=== PATIENT | male | born 1970 | race Caucasian/White ===

== ENCOUNTER → 2021-10-10 10:24 | Outpatient (BNVA) | payer MEDICAID, SELFPAY | PROVIDERS: Visit Provider Surgery | DX: K40.90 Unilateral inguinal hernia, without obstruction or gangrene, not specified as recurrent (principal); K42.9 Umbilical hernia without obstruction or gangrene; Z72.0 Tobacco use | CPT/HCPCS: 99202 ==

== ENCOUNTER → 2021-10-23 13:17 | Outpatient (BNVA) | payer MEDICAID, SELFPAY | PROVIDERS: Visit Provider Surgery | DX: K40.20 Bilateral inguinal hernia, without obstruction or gangrene, not specified as recurrent (principal); K42.9 Umbilical hernia without obstruction or gangrene; F41.9 Anxiety disorder, unspecified; Z72.0 Tobacco use | CPT/HCPCS: 99212 ==

== ENCOUNTER 2021-11-04 08:04 | Outpatient (REF) | payer MEDICAID, SELFPAY ==
--- NOTE | ~2021-11-04 | US_ITS ---
EXAMINATION: US ABDOMEN COMPLETE CLINICAL INFORMATION: Elevated LFTs. COMPARISON: None TECHNIQUE: Real-time imaging of the abdominal viscera. FINDINGS: PANCREAS: The head and body are normal. The tail is not well visualized due to bowel gas. ABDOMINAL AORTA: The abdominal aorta is normal in caliber. There is evidence of mild atherosclerotic disease of the distal abdominal aorta. INFERIOR VENA CAVA: Visualized portions are normal. LIVER: The liver is normal in size. The liver contour is normal. Liver echotexture is slightly increased. No focal hepatic lesion. There is no intrahepatic biliary duct dilatation seen. GALLBLADDER: Normal. The gallbladder is physiologically distended without evidence of stones, sludge, polyps, wall thickening or pericholecystic fluid. COMMON BILE DUCT: Normal in caliber measuring 0.4 cm in diameter. RIGHT KIDNEY: Normal. No hydronephrosis. No renal calculi or focal parenchymal lesions. The kidney measures 10.7 cm in maximum dimension. LEFT KIDNEY: No hydronephrosis or focal parenchymal lesions. The kidney measures 9.3 cm in maximum dimension. SPLEEN: Normal. The spleen measures 7.5 cm in maximum dimension. FREE FLUID: None. US/US abdomen complete IMPRESSION: Slightly echogenic liver probably representing fatty infiltration. Limited visualization of the tail the pancreas.
== END 2021-11-04 08:05 | disposition home or self-care (01) ==
LOC: HO.HMGCX 08:04
PROVIDERS: Visit Provider Family Medicine
DX: R79.89 Other specified abnormal findings of blood chemistry (principal)
CPT/HCPCS: 76700

== ENCOUNTER 2021-11-20 05:41 | Day surgery (SDC) | payer MEDICAID, SELFPAY ==
[2021-11-17 10:11] VITALS: BMI 25.7
[2021-11-20] VITALS (12 sets, daily range): BP systolic 119–142; BP diastolic 66–93; PULSE 81–98; RESP 16–20; TEMP 36.1–36.6; O2SAT 96–100
[2021-11-20] MEDS: Lactated Ringers 1,000 ML 100 ML IVCONT (06:32)
--- NOTE | 2021-11-20 07:14 | HO.ANESPROP2 ---
HPI - Anesthesia Eval Consult details Narrative: for ing and umbil hernia repairs PMFSH Active Problems Active Problems: All Active Problems (Updated 11/17/21 @ 10:13 by Meagan Acosta RN) Left inguinal hernia (Acute) Umbilical hernia (Acute) Nicotine use (Acute) Anxiety (Acute) Past Medical History Medical History (Updated 11/17/21 @ 10:13 by Meagan Acosta RN) Elevated cholesterol HTN (hypertension) Family History Family History Mother Skin cancer Family history of problems with anesthesia: No Surgical History Surgical History History of surgery on lower extremity History of tonsillectomy History of Problems with Anesthesia: No Social History Social History Patient Tobacco Use Status: Former Tobacco user Quit Date: 09/26/21 Are you DNR?: No Advance Directives: No Advance Directives Information Provided: Yes Recently lost weight without trying: No Nutrition Risks: No Nutritional Risk Poor oral hygiene: No Meds Allergies Allergy/AdvReac Type Severity Reaction Status Date / Time Penicillins Allergy Severe Unknown Verified 11/20/21 06:19 tetracycline Allergy Severe Unknown Verified 11/20/21 06:19 Active Medications: Current Medications Lactated Ringer's (Lr) 1,000 mls @ 100 mls/hr IVCONT .Q10H VANDANA Last Admin: 11/20/21 06:32 Dose: 100 mls/hr Home Medications Medication Instructions Recorded Confirmed Last Taken Type hydrochlorothiazide 25 mg tablet 25 mg PO DAILY 10/10/21 11/17/21 11/19/21 History metoprolol succinate 25 mg 25 mg PO BEDTIME 10/10/21 11/17/21 11/19/21 History tablet,extended release 24 hr atorvastatin 20 mg tablet 1 tab PO BEDTIME 11/17/21 11/17/21 11/19/21 History Exam Exam Date and Time: November 20, 2021 0714 Height,Weight and Vital Signs: Height 5 ft 8 in Weight 76.8 kg Last Vital Signs Temp 96.9 F 11/20/21 06:07 Pulse 98 11/20/21 06:07 Resp 16 11/20/21 06:07 BP 125/93 H 11/20/21 06:07 Pulse Ox 96 11/20/21 06:07 O2 Del Method 11/20/21 06:07 Airway Mallampati Class: I TM Dist: >3cm Neck ROM: Full Loose/Missing/Broken Teeth: Yes Heart: ok Lungs: ok Assessment and Plan Assessment Anesthesia Assessment: Anesthesia Plan Discussed and Chart Reviewed Final Anesthetic Review Family History of Problems with Anesthesia: No History of Problems with Anesthesia: No NPO: Yes ASA Class: II Final Preanesthetic Review: No Changes in Pt Med Stat, Meds/Allgs Chart Reviewed, Consent Obtained/Reviewed and Anes Risks/Benef Reviewed Patient Risk: Low Procedure Risk: Low Anesthetic Plan Anesthetic Plan: GA and Agree w/ Assess. and Plan Disposition: Standard PACU
--- NOTE | 2021-11-20 07:23 | MHC.SHP ---
Pre-Procedural Eval Section A Date of Service: 11/20/21 The patient is an INPATIENT: No The History & Physical has been completed within 30 days and I have reviewed it.: Yes Section B Chief Complaint: hernias Allergies: Allergies Allergy/AdvReac Type Severity Reaction Status Date / Time Penicillins Allergy Severe Unknown Verified 11/20/21 06:19 tetracycline Allergy Severe Unknown Verified 11/20/21 06:19 Plan I have reviewed the history and physical and performed a pertinent physical examination on my patient. No changes have occurred unless specified.
[2021-11-20] MEDS: oxyCODONE HCl Immed Release 5 MG TABLET 10 MG PO (09:23)
[2021-11-20] MEDS: fentaNYL citrate/PF 100 MCG/2 ML VIAL 50 MCG IVPUSH ×4 (09:26→10:00)
--- NOTE | 2021-11-20 09:30 | P.OP_ITS ---
Operative Note Operative Note Date of Service: 11/20/21 Narrative: Preop diagnosis: [Left inguinal hernia; umbilical hernia] Postop diagnosis: [Same, indirect inguinal hernia] Procedure: Open left inguinal hernia repair with polypropylene mesh; umbilical hernia repair Surgeon: Theron Mera MD Assist: None Anesthesia: [General via LMA; ropivacaine 0.5%] Estimated blood loss: [3cc] Specimen: [Hernia sac] Intraoperative findings: A large indirect left inguinal hernia containing properitoneal fat and the reducible, viable umbilical hernia containing properitoneal fat with approximately 1.5 cm fascial defect was encountered. Indications: The patient is a 51-year-old gentleman who moved here from [place] with right groin pain, left inguinal hernia and an umbilical hernia. No overt right inguinal hernia was encountered, and after smoking cessation and medical clearance, the patient was counseled regarding hernia repair. Activity restrictions were also reviewed. Given the symptomatic nature of these hernias, I recommended repair with mesh of the left inguinal hernia and possible primary closure of the umbilical hernia. The inherent risks were reviewed with the patient including, but not limited to: Bleeding, infection, hernia recurrence especially if postoperative instructions are in followed or weight gain occurs; mesh complications that could require reoperation, wound complications if he resumes smoking. Nerve entrapment and chronic pain were also discussed as well as urinary retention. The patient seemed understand his options and wanted to proceed. Procedure: The patient was identified in the preoperative holding area by myself and the operative site marked by me confirming a LEFT inguinal hernia & REDUCIBLE UMBILICAL HERNIA. 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 The operative field hair had been clipped in preop holding. The patient was again identified in the operating suite and placed supine on the table. See anesthesia notes for full details regarding anesthesia care and management. An appropriate time-out was performed confirming the operative site and procedure. The patient was then widely prepped and draped in the usual manner using chlorhexidine. An ileoinguinal nerve block was performed using ropivacaine and a standard left inguinal herniorrhaphy incision made sharply through the skin. Dissection was carried through all layers using electric cautery for dissection and hemostasis. Additional local was infiltrated is the external oblique aponeurosis, in the external oblique aponeurosis opened sharply in the direction of its fibers to the external ring. The ilioinguinal nerve was identified and sacrificed through the dissection given its proximity to the repair. The cord was mobilized at the level of the pubic tubercle and surrounded with hernia tape taking care to avoid structures to the test and preserve the. The floor was inspected and no direct defect found. Careful dissection of the spermatic cord to preserve the vessels and vas was performed to assess for indirect hernia sac which was moderate in size. The hernia sac was highly dissected, opened, its contents reduced and suture ligation performed. Next, a standard Gustavo tension-free herniorrhaphy performed using polypropylene patch that was sutured to the pubic tubercle and inguinal ligament using a 2-0 Polysorb. A new internal ring was made using 2-0 polypropylene suture. The new internal ring was snug enough that it could just accommodate a tip of a hemostat. Next, the operative field was inspected for hemostasis which was good, the external oblique aponeurosis was closed with a running 0 Polysorb suture, subcutaneous tissues closed with 3-0 Polysorb and skin closed with running 4-0 Monocryl subcuticular suture. The abdomen was washed and dried, Mastisol and Steri-Strips applied followed by a sterile dressing. Patient tolerated the procedure well was sent to the recovery area in stable condition. All sponge and instrument counts were correct x2.]
[2021-11-20] MEDS: Acetaminophen 325 MG TABLET 650 MG PO (09:33)
== END 2021-11-20 10:55 | disposition home or self-care (01) ==
LOC: HO.SSS 05:42
PROVIDERS: PCP Family Medicine; Visit Provider Surgery
PROC: (CPT 49505; principal; 2021-11-20 07:30)
PROC: (CPT 49505; 2021-11-20 07:30)
DX: K40.90 Unilateral inguinal hernia, without obstruction or gangrene, not specified as recurrent (principal); K42.9 Umbilical hernia without obstruction or gangrene; I10 Essential (primary) hypertension; E78.00 Pure hypercholesterolemia, unspecified; Z88.0 Allergy status to penicillin; Z88.8 Allergy status to other drugs, medicaments and biological substances; Z87.891 Personal history of nicotine dependence
CPT/HCPCS: 49505; 49585; 88302; C1781; J1885; J2250; J2405; J2795; J3010

== ENCOUNTER 2022-03-25 08:47 | Emergency (ER) | payer MEDICAID, SELFPAY ==
[2022-03-25 08:55] VITALS: BP 122/97; PULSE 109; RESP 18; TEMP 36.9; O2SAT 98; BMI 25.0
--- NOTE | 2022-03-25 08:56 | ED_ITS ---
HPI - General Adult General Chief complaint: Extremity Problem Stated complaint: foot pain, no injury Time Seen by Provider: 03/25/22 08:55 Source: patient Mode of arrival: ambulatory Limitations: no limitations History of Present Illness HPI narrative: Patient is a 51 year old assigned male at with a history of a gout presenting to the emergency department today with right foot swelling and pain. Patient states that over the last few days he has noticed his right foot to have some swelling and pain. Patient denies any dizziness, lightheadedness, abdominal pain, nausea, vomiting, fever, chills, blurry vision, double vision, loss of vision, chest pain, difficulty breathing, shortness of breath, back pain, night sweats, pain with urination, increased urinary frequency, increased urinary urgency, blood in his urine or stool, syncope or a near syncopal episode, recent trauma or falls, bowel incontinence, bladder incontinence, bowel retention, bladder retention, or any other complaints at this time. Onset (ago): day(s) Location: right and lower extremity (foot) Severity: mild Severity scale (1-10): 2 Relieving factors: none Exacerbating factors: none Associated symptoms: denies other symptoms Treatments prior to arrival: none Related Data Home Medications Medication Instructions Recorded Confirmed hydrochlorothiazide 25 mg tablet 25 mg PO DAILY 10/10/21 11/28/21 metoprolol succinate 25 mg 25 mg PO BEDTIME 10/10/21 11/28/21 tablet,extended release 24 hr atorvastatin 20 mg tablet 1 tab PO BEDTIME 11/17/21 11/28/21 Previous Rx's Medication Instructions Recorded oxycodone 5 mg tablet 5 mg PO Q4H PRN pain #20 tabs 11/20/21 naproxen 500 mg tablet 500 mg PO BID 7 days #14 tabs 03/25/22 prednisone 20 mg tablet 20 mg PO DAILY 7 days #7 tabs 03/25/22 Allergies Allergy/AdvReac Type Severity Reaction Status Date / Time Penicillins Allergy Severe Unknown Verified 11/28/21 09:27 tetracycline Allergy Severe Unknown Verified 11/28/21 09:27 Review of Systems Constitutional: Constitutional: Reports no additional constitutional complaints, Denies chills, Denies fever(s) and Denies night sweats Eyes: Eyes: Reports no additional eye complaints, Denies blurry vision, Denies change in vision, Denies diplopia, Denies eye discharge, Denies loss of vision and Denies eye pain ENT: Denies dizziness Cardiovascular: Cardiovascular: Reports no additional cardiovascular complaints, Denies chest pain, Denies lightheadedness, Denies Loss of Consciousness and Denies dyspnea Respiratory: Respiratory: Reports no additional respiratory complaints and Denies dyspnea Gastrointestinal: Gastrointestinal: Reports no additional gastrointestinal complaints, Denies abdominal pain, Denies melena, Denies hematochezia, Denies c hange in bowel habits and Denies change in stool character Genitourinary: Genitourinary: Reports no additional male genitourinary complaints, Denies hematuria, Denies oliguria, Denies difficulty urinating, Denies dysuria, Denies urinary frequency, Denies urinary hesitancy, Denies urinary incontinence and Denies urinary urgency Musculoskeletal: Musculoskeletal: Reports no additional musculoskeletal complaints, Denies numbness and Denies tingling Comments: right foot pain and swelling Neurologic: Denies dizziness, Denies loss of vision, Denies numbness and Denies tingling Psychiatric: Psychiatric: Reports no additional psychiatric complaints Endocrine: Endocrine: Reports no additional endocrine complaints Hematologic/Lymphatic: Hematologic/Lymphatic: Reports no additional hematologic/lymphatic complaints Allergic/Immunologic: Allergic/Immunologic: Reports no additional allergic/immunologic complaints PMFSH Past Medical History Attestation statement: The following information was validated with the patient. Source: old records reviewed and nursing notes reviewed Medical History Elevated cholesterol HTN (hypertension) Surgical History History of surgery on lower extremity History of tonsillectomy Family History Family History Mother Skin cancer Social History Social History Patient Tobacco Use Status: Former Tobacco user Quit Date: 09/26/21 Physical Exam ED Vital Signs: Vital Signs - 24 hr 03/25/22 08:55 Temperature 98.4 F Pulse Rate 109 H Respiratory Rate 18 Blood Pressure 122/97 H Pulse Oximetry 98 Oxygen Delivery Method Room Air BMI result Body Mass Index 25.0 Const General: cooperative, no acute distress, alert and awake Nutritional Appearance: well nourished Orientation/consciousness: patient oriented x3 Limitations: no limitations [facility] Head: Yes normal to inspection and Yes atraumatic Ears: hearing grossly normal bilaterally and external ears normal General nose exam: Normal external nose present, no nasal discharge noted and no epistaxis Face and sinus: Yes normal facial exam, No abrasion and No laceration Mouth: Normal oral and palatal mucosa present, no drooling and no muffled voice Eyes General: appearance normal, both eyes and all related structures Periorbital: periorbital findings normal Eyelids: Yes eyelids normal Conjunctivae: conjunctivae normal Pupils: Equal, round and reactive pupils present EOM: EOMs intact bilaterally Neck Neck: Yes normal visual inspection, Yes full ROM and Yes no lymphadenopathy Chest Chest palpation & inspection: normal inspection of the chest Resp Effort & Inspection: normal respiratory effort and able to speak in complete sentences Auscultation: clear to auscultation bilaterally Cardio Rate: regular rate Rhythm: regular rhythm GI Inspection: Yes normal to inspection Palpation (GI): Soft to palpation, not firm, nontender and no guarding Neuro General: patient oriented x3 and moves all extremities Cranial nerves: Yes Equal, round and reactive pupils present Cognition (Neuro): normal cognition Motor exam (neuro): 5/5 motor strength present throughout Sensory Exam: Normal double simultaneous stimulation for sensation Coordination: [id number] test normal Extrem Other: mild swelling to the dorsal aspect of the right foot with mild erythema and warmth - specifically around the dorsal 1st MTP joint General: Yes full ROM and Yes capillary refill normal Psych Appearance: grossly normal Mental Status: mental status grossly normal Affect: normal affect Attitude: cooperative Thought process: Normal thought process present Thought content: Normal thought content present Insight: Good insight present (Psych) Medical Decision Making Medical Decision Making MDM Narrative: Patient is a 51 year old assigned male at with a history of gout presenting to the emergency department today with right foot pain and swelling. Patient's physical exam showed mild erythema, warmth, and swelling to the right 1st MTP joint, consistent with gout. I explained my physical exam findings to the patient. I answered all questions asked by the patient. I stressed the importance of the patient taking his medication as prescribed. I stressed the importance of the patient following up with his primary care provider. I stressed the importance of the patient returning to the emergency department immediately if his symptoms were to worsen or if he were to develop any dizziness, shortness of breath, difficulty breathing, chest pain, blurry vision, loss of vision, nausea, vomiting, abdominal pain, fever, chills, back pain, or any other complaints. Patient verbalized agreement and understanding with this treatment plan and discharge. Differential Diagnosis Differential Diagnoses: The differential diagnosis associated with the presentation includes gout Discharge Plan Discharge Clinical Impression: Gout Patient Disposition: Home, Self-Care Instructions: Gout (ED) Additional Instructions: Follow up with your primary care provider. Return to the emergency department immediately if your symptoms worsen or if you develop any dizziness, shortness of breath, difficulty breathing, chest pain, blurry vision, loss of vision, nausea, vomiting, abdominal pain, fever, chills, back pain, or any other complaints. Prescriptions: New prednisone 20 mg tablet 20 mg PO DAILY 7 Days Qty: 7 0RF naproxen 500 mg tablet 500 mg PO BID 7 Days Qty: 14 0RF No Action atorvastatin 20 mg tablet 1 tab PO BEDTIME oxycodone 5 mg tablet 5 mg PO Q4H PRN (Reason: pain) Qty: 20 0RF Rx Instructions: Partial Fill upon patient request. hydrochlorothiazide 25 mg tablet 25 mg PO DAILY metoprolol succinate 25 mg tablet extended release 24 hr 25 mg PO BEDTIME Referrals: [facility] Family Medicine [Provider Group] (Call to establish and follow up with a primary care provider. If you already have a primary care provider, please follow up with them. ) [facility] Primary Care, [place] [Provider Group] (Call to establish and follow up with a primary care provider. If you already have a primary care provider, please follow up with them. ) [facility] Primary Care,[place] [Provider Group] (Call to establish and follow up with a primary care provider. If you already have a primary care provider, please follow up with them. ) Stand Alone Forms: Work/School Release Print Language: Luxembourgish
--- OUTSIDE RECORDS SUMMARY | 2022-03-25 09:08 | XMS_ITS | Continuity of Care Document ---
:1970 Author Organization [facility] Address [address] [place] [address]- Care Team Providers Name Role Phone Not on Staff, PCP Primary Care Physician Unavailable Encounter [facility] Date(s): 08/08/21 - 09/07/21 [facility] [address] [place] [address]- Allergies, Adverse Reactions, Alerts Substance Reaction Severity Status tetracycline Active penicillin Active
--- OUTSIDE RECORDS SUMMARY | 2022-03-25 09:09 | XMS_ITS | Continuity of Care Document ---
:1970 Author Organization [facility] Address [address] [place] [address]- Care Team Providers Name Role Phone Not on Staff, PCP Primary Care Physician Unavailable Encounter [facility] NBR [id number] Date(s): 08/12/21 - 09/11/21 [facility] [address] [place] [address]- Attending Physician: Liliana Burrows Admitting Physician: Liliana Burrows Referring Physician: Liliana Burrows Allergies, Adverse Reactions, Alerts Substance Reaction Severity Status tetracycline Active penicillin Active
--- OUTSIDE RECORDS SUMMARY | 2022-03-25 09:09 | XMS_ITS | Continuity of Care Document ---
:1970 Author Organization [facility] Address [address] [place] [address]- Care Team Providers Name Role Phone Liu Connell Primary Care Physician Encounter [facility] Date(s): 09/24/21 - 10/24/21 [facility] [address] Attending Physician: Liliana Burrows Admitting Physician: AdmtrLiliana Referring Physician: Admtr, Ar8 Allergies, Adverse Reactions, Alerts Substance Reaction Severity Status tetracycline Active penicillin Active Care Team PersonnelName: Liu Connell Address: [address] [place] [address]
--- OUTSIDE RECORDS SUMMARY | 2022-03-25 09:09 | XMS_ITS | Continuity of Care Document ---
:1970 Author Organization [facility] Address Unavailable , Care Team Providers Name Role Phone Not on Staff, PCP Primary Care Physician Unavailable Encounter [facility] Date(s): 08/07/21 - 09/06/21 [facility] Attending Physician: Liliana Burrows Admitting Physician: Liliana Burrows Referring Physician: Liliana Burrows Allergies, Adverse Reactions, Alerts Substance Reaction Severity Status tetracycline Active penicillin Active
--- OUTSIDE RECORDS SUMMARY | 2022-03-25 09:09 | XMS_ITS | Continuity of Care Document ---
:1970 Author Organization [facility] Address [address] [place] [address]- Care Team Providers Name Role Phone Not on Staff, PCP Primary Care Physician Unavailable Encounter [facility] NBR [id number] Date(s): 08/08/21 [facility] [address] [place] [address]- Attending Physician: Noah Miller Allergies, Adverse Reactions, Alerts Substance Reaction Severity Status tetracycline Active penicillin Active
--- OUTSIDE RECORDS SUMMARY | 2022-03-25 09:09 | XMS_ITS | Continuity of Care Document ---
:1970 Author Organization [facility] Address [address] [place] [address]- Care Team Providers Name Role Phone Mc MCKEON, Liu Cole Primary Care Physician Encounter [facility] Date(s): 09/08/21 - 10/08/21 [facility] [address] [place], [place] [address] Allergies, Adverse Reactions, Alerts Substance Reaction Severity Status tetracycline Active penicillin Active
--- OUTSIDE RECORDS SUMMARY | 2022-03-25 09:09 | XMS_ITS | Continuity of Care Document ---
:1970 Author Organization [facility] Address [address] [place] [address]- Care Team Providers Name Role Phone Not on Staff, PCP Primary Care Physician Unavailable Encounter [facility] Date(s): 08/07/21 - 09/06/21 [facility] [address] [place], [place] [address] Allergies, Adverse Reactions, Alerts Substance Reaction Severity Status tetracycline Active penicillin Active
--- OUTSIDE RECORDS SUMMARY | 2022-03-25 09:09 | XMS_ITS | Continuity of Care Document ---
:1970 Author Organization [facility] Address [address] [place] [address]- Care Team Providers Name Role Phone Not on Staff, PCP Primary Care Physician Unavailable Encounter [facility] Date(s): 08/08/21 - 09/07/21 [facility] [address] [place], [place] [address] Allergies, Adverse Reactions, Alerts Substance Reaction Severity Status tetracycline Active penicillin Active
--- OUTSIDE RECORDS SUMMARY | 2022-03-25 09:09 | XMS_ITS | Continuity of Care Document ---
:1970 Author Organization [facility] Address [address] [place] [address]- Care Team Providers Name Role Phone Not on Staff, PCP Primary Care Physician Unavailable Encounter [facility] Date(s): 08/05/21 - 08/05/[address] [address]- Encounter Diagnosis Abdominal pain (Final) - 08/05/21 Abdominal hernia (Final) - 08/05/21 Discharge Disposition: A-D/C Home Attending Physician: Heike Fraga MD Admitting Physician: Heike Fraga MD Referring Physician: Not on Staff, Referring MD Allergies, Adverse Reactions, Alerts Substance Reaction Severity Status tetracycline Active penicillin Active Vital Signs Most recent to oldest [Reference Range]: 1 2 Height 173 cm (08/05/21 9:51 AM) Weight 73.5 kg (08/05/21 9:51 AM) Oxygen Saturation [94-100 %] 100 % 100 % (08/05/21 9:51 AM) (08/05/21 9:42 AM) Pulse Rate [55-90 bpm] 94 bpm 101 bpm *H* *H* (08/05/21 9:51 AM) (08/05/21 9:42 AM) Body Mass Index [18.5-24.99] 24.56 (08/05/21 9:51 AM) Blood Pressure [90-138/55-84 mm Hg] 153/98 mm Hg *H* (08/05/21 9:51 AM) Respiratory Rate [16-30 br/min] 18 br/min (08/05/21 9:51 AM) Temperature [96.8-100.4 DegF] 98.1 DegF (08/05/21 9:51 AM) Mode of Delivery (Oxygen) Room air (08/05/21 9:51 AM) Blood pressure sites Arm, right (08/05/21 9:51 AM) Temperature Route Oral (08/05/21 9:51 AM) Dry Weight 73.5 kg (08/05/21 9:51 AM) Weight Obtained Via Standing scale (08/05/21 9:51 AM) Dry Weight Obtained Via Standing scale (08/05/21 9:51 AM)
[2022-03-25] MEDS: predniSONE 20 MG TABLET PO (09:19)
[2022-03-25] MEDS: NaPROXEN 500 MG TABLET PO (09:19)
== END 2022-03-25 09:26 | disposition home or self-care (01) ==
PROVIDERS: Emergency Provider Emergency Medicine
DX: M10.9 Gout, unspecified (principal); M79.671 Pain in right foot; I10 Essential (primary) hypertension; E78.5 Hyperlipidemia, unspecified; Z79.02 Long term (current) use of antithrombotics/antiplatelets; Z79.899 Other long term (current) drug therapy
CPT/HCPCS: 99283

== ENCOUNTER 2022-07-08 06:49 | Emergency (ER) | payer MEDICAID, SELFPAY ==
[2022-07-08 06:54] VITALS: BP 149/98; PULSE 133; RESP 18; TEMP 36.4; O2SAT 97; BMI 24.3
[2022-07-08 07:06] VITALS: BP 140/90; PULSE 123; RESP 20; TEMP 36.6; O2SAT 99
[2022-07-08 07:23] LABS: MANUAL DIFF FLAG NO
[2022-07-08 07:25] LABS: Basophils Percent Auto 0.2 % (0-2); Eosinophils Absolute Auto 0.1 X10*3/uL (0.0-0.4); Eosinophils Percent Auto 0.5 % (0-4); Hematocrit 40.1 % (42.0-52.0); Hemoglobin 13.7 g/dl (14.0-18.0); Imm Gran Abs Auto 0.07 X10*3/uL (0.00-0.03); Imm Gran Pct Auto 0.5 % (0.0-0.4); Lymphocytes Absolute Auto 1.8 X10*3/uL (1.2-4.9); Lymphocytes Percent Auto 13.2 % (20-40); Mean Corpuscular HGB Conc 34.2 g/dl (31.0-36.0); Mean Corpuscular Hemoglobin 32.8 pg (27.0-33.0); Mean Corpuscular Volume 95.9 fL (80.0-98.0); Mean Platelet Volume 9.6 fL (9.4-12.4); Monocytes Absolute Auto 0.8 X10*3/uL (0.1-1.2); Monocytes Percent Auto 6.2 % (2-11); Neutrophils Absolute Auto 10.6 x10*3/uL (2.0-8.3); Neutrophils Percent Auto 79.4 % (45-73); Platelet Count 226 X10*3/uL (160-400); Red Blood Count 4.18 X10*6/uL (4.60-5.80); Red Cell Distribution Width 12.8 % (11.0-16.0); White Blood Count 13.3 X10*3/uL (4.8-10.8)
--- NOTE | 2022-07-08 07:33 | ED.GENADULT ---
HPI - General Adult General Chief complaint: Extremity Injury, Lower Stated complaint: Gout Both Legs Time Seen by Provider: 07/08/22 07:32 Source: patient Mode of arrival: ambulatory Limitations: no limitations History of Present Illness HPI narrative: Patient is a 52 year old assigned male at with a history of gout and anxiety presenting to the emergency department today with right great toe pain and knee pain. Patient states that he believes that he is in an episode of gout as his right toe and knee have been hurting and his right great toe is swollen and red. Patient states that he does not tolerate pain well and gets worked up with it. Patient states that he has been having trouble sleeping from the pain. Patient denies any dizziness, lightheadedness, abdominal pain, nausea, vomiting, fever, chills, blurry vision, double vision, loss of vision, chest pain, difficulty breathing, shortness of breath, back pain, night sweats, pain with urination, increased urinary frequency, increased urinary urgency, blood in his urine or stool, syncope or a near syncopal episode, recent trauma or falls, bowel incontinence, bladder incontinence, bowel retention, bladder retention, or any other complaints at this time. Onset (ago): day(s) Location: right and lower extremity Radiation: non-radiation Severity: mild Severity scale (1-10): 3 Quality: aching Pain Consistency: constant Relieving factors: none Exacerbating factors: none Associated symptoms: denies other symptoms Treatments prior to arrival: none Related Data Home Medications Medication Instructions Recorded Confirmed hydrochlorothiazide 25 mg tablet 25 mg PO DAILY 10/10/21 11/28/21 metoprolol succinate 25 mg 25 mg PO BEDTIME 10/10/21 11/28/21 tablet,extended release 24 hr atorvastatin 20 mg tablet 1 tab PO BEDTIME 11/17/21 11/28/21 Previous Rx's Medication Instructions Recorded oxycodone 5 mg tablet 5 mg PO Q4H PRN pain #20 tabs 11/20/21 naproxen 500 mg tablet 500 mg PO BID 7 days #14 tabs 03/25/22 prednisone 20 mg tablet 20 mg PO DAILY 7 days #7 tabs 03/25/22 indomethacin 25 mg capsule 25 mg PO BID #14 caps 07/08/22 prednisone 20 mg tablet 20 mg PO DAILY 7 days #7 tabs 07/08/22 Allergies Allergy/AdvReac Type Severity Reaction Status Date / Time Penicillins Allergy Severe Unknown Verified 11/28/21 09:27 tetracycline Allergy Severe Unknown Verified 11/28/21 09:27 Review of Systems Constitutional: Constitutional: Reports no additional constitutional complaints, Denies chills, Denies fever(s) and Denies night sweats Eyes: Eyes: Reports no additional eye complaints, Denies blurry vision, Denies change in vision, Denies diplopia, Denies eye discharge, Denies loss of vision and Denies eye pain ENT: Denies dizziness Cardiovascular: Cardiovascular: Reports no additional cardiovascular complaints, Denies chest pain, Denies lightheadedness, Denies Loss of Consciousness and Denies dyspnea Respiratory: Respiratory: Reports no additional respiratory complaints and Denies dyspnea Gastrointestinal: Gastrointestinal: Reports no additional gastrointestinal complaints, Denies abdominal pain, Denies melena, Denies hematochezia, Denies change in bowel habits and Denies change in stool character Genitourinary: Genitourinary: Reports no additional male genitourinary complaints, Denies hematuria, Denies oliguria, Denies difficulty urinating, Denies dysuria, Denies urinary frequency, Denies urinary hesitancy, Denies urinary incontinence and Denies urinary urgency Musculoskeletal: Musculoskeletal: Reports no additional musculoskeletal complaints, Denies numbness and Denies tingling Comments: right great toe redness and pain, right knee pain Neurologic: Denies dizziness, Denies loss of vision, Denies numbness and Denies tingling Psychiatric: Psychiatric: Reports no additional psychiatric complaints Endocrine: Endocrine: Reports no additional endocrine complaints Hematologic/Lymphatic: Hematologic/Lymphatic: Reports no additional hematologic/lymphatic complaints Allergic/Immunologic: Allergic/Immunologic: Reports no additional allergic/immunologic complaints [facility] Past Medical History Attestation statement: The following information was validated with the patient. Source: old records reviewed and nursing notes reviewed Medical History Elevated cholesterol HTN (hypertension) Surgical History History of surgery on lower extremity History of tonsillectomy Family History Family History Mother Skin cancer Social History Social History Patient Tobacco Use Status: Former Tobacco user Quit Date: 09/26/21 Advance Directives: No Advance Directives Information Provided: Yes Physical Exam ED Vital Signs: Vital Signs - 24 hr 07/08/22 06:54 07/08/22 07:06 Temperature 97.6 F 97.9 F Pulse Rate 133 H 123 H Respiratory Rate 18 20 Blood Pressure 149/98 H 140/90 H Pulse Oximetry 97 99 Oxygen Delivery Method Room Air Room Air BMI result Body Mass Index 24.3 Const General: cooperative, no acute distress, alert and awake Nutritional Appearance: well nourished Orientation/consciousness: patient oriented x3 Limitations: no limitations HENMT Head: Yes normal to inspection and Yes atraumatic Ears: hearing grossly normal bilaterally and external ears normal General nose exam: Normal external nose present, no nasal discharge noted and no epistaxis Face and sinus: Yes normal facial exam, No abrasion and No laceration Mouth: Normal oral and palatal mucosa present, no drooling and no muffled voice Eyes General: appearance normal, both eyes and all related structures Periorbital: periorbital findings normal Eyelids: Yes eyelids normal Conjunctivae: conjunctivae normal Pupils: Equal, round and reactive pupils present EOM: EOMs intact bilaterally Neck Neck: Yes normal visual inspection, Yes full ROM and Yes no lymphadenopathy Chest Chest palpation & inspection: normal inspection of the chest Resp Effort & Inspection: normal respiratory effort and able to speak in complete sentences Auscultation: clear to auscultation bilaterally Cardio Rate: regular rate Rhythm: regular rhythm GI Inspection: Yes normal to inspection Neuro General: patient oriented x3 and moves all extremities Cranial nerves: Yes Equal, round and reactive pupils present Cognition (Neuro): normal cognition Motor exam (neuro): 5/5 motor strength present throughout Sensory Exam: Normal double simultaneous stimulation for sensation Coordination: [id number] test normal Extrem Other: minimal redness to the right great toe General: Yes full ROM and Yes capillary refill normal Psych Appearance: grossly normal Mental Status: mental status grossly normal Affect: normal affect Attitude: cooperative Thought process: Normal thought process present Thought content: Normal thought content present Insight: Good insight present (Psych) Medical Decision Making Medical Decision Making MDM Narrative: Patient is a 52 year old assigned male at with a history of anxiety and gout presenting to the emergency department today with right great toe pain and right knee pain. Patient's physical exam showed minimal redness to the right great toe and pain with palpation of the right great toe. Patient was tachycardic however, I believe this to be secondary to the patient's pain/anxiety. Patient's blood work was unremarkable. I explained my physical exam findings as well as all test results to the patient. I answered all questions asked by the patient. Patient received PO Prednisone and IM Toradol which he stated helped his symptoms significantly. I stressed the importance of the patient taking his medication as prescribed. I stressed the importance of the patient following up with his primary care provider. I stressed the importance of the patient returning to the emergency department immediately if his symptoms were to worsen or if he were to develop any dizziness, shortness of breath, difficulty breathing, chest pain, blurry vision, loss of vision, nausea, vomiting, abdominal pain, fever, chills, back pain, or any other complaints. Patient verbalized agreement and understanding with this treatment plan and discharge. Differential Diagnosis Differential Diagnoses: The differential diagnosis associated with the presentation includes gout, toe pain, knee pain Lab Data MDM Lab Attestation statement: I reviewed the patient's lab results. 07/08/22 07:15 07/08/22 07:15 Labs: Lab Results 07/08/22 07/08/22 Range/Units 07:15 07:15 WBC 13.3 H (4.8-10.8) X10*3/uL RBC 4.18 L (4.60-5.80) X10*6/uL Hgb 13.7 L (14.0-18.0) g/dl Hct 40.1 L (42.0-52.0) % MCV 95.9 (80.0-98.0) fL MCH 32.8 (27.0-33.0) pg MCHC 34.2 (31.0-36.0) g/dl RDW 12.8 (11.0-16.0) % Plt Count 226 (160-400) X10*3/uL MPV 9.6 (9.4-12.4) fL Immature Gran % (Auto) 0.5 H (0.0-0.4) % Neut % (Auto) 79.4 H (45-73) % Lymph % (Auto) 13.2 L (20-40) % [place] % (Auto) 6.2 (2-11) % Eos % (Auto) 0.5 (0-4) % Baso % (Auto) 0.2 (0-2) % Lymph # (Auto) 1.8 (1.2-4.9) X10*3/uL [place] # (Auto) 0.8 (0.1-1.2) X10*3/uL Eos # (Auto) 0.1 (0.0-0.4) X10*3/uL Baso # (Auto) 0.0 (0.0-0.2) X10*3/uL Abs Immat Gran (auto) 0.07 H (0.00-0.03) X10*3/uL Absolute Neuts (auto) 10.6 H (2.0-8.3) x10*3/uL Absolute Nucleated RBC 0.000 (0.0-0.012) X10*3/uL Nucleated RBC % (auto) 0.0 (0.0-0.2) /100WBC Sodium 140 (135-145) mmol/L Potassium 3.1 L (3.3-5.1) mmol/L Chloride 98 (96-108) mmol/L Carbon Dioxide 30 H (22-29) mmol/L Anion Gap 15 (12-20) BUN 12 (9-16) mg/dL Creatinine 1.00 (0.5-1.4) mg/dL Estim Creat Clear Calc 82.6 Estimated GFR > 60 Random Glucose 110 (60-115) mg/dL Calcium 8.4 (8.4-10.2) mg/dL Discharge Plan Discharge Clinical Impression: Gout Patient Disposition: Home, Self-Care Instructions: Low Purine Diet (ED), Gout (ED) Additional Instructions: Follow up with your primary care provider. Return to the emergency department immediately if your symptoms worsen or if you develop any dizziness, shortness of breath, difficulty breathing, chest pain, blurry vision, loss of vision, nausea, vomiting, abdominal pain, fever, chills, back pain, or any other complaints. Prescriptions: New prednisone 20 mg tablet 20 mg PO DAILY 7 Days Qty: 7 0RF indomethacin 25 mg capsule 25 mg PO BID Qty: 14 0RF Rx Instructions: administer with food or milk No Action atorvastatin 20 mg tablet 1 tab PO BEDTIME oxycodone 5 mg tablet 5 mg PO Q4H PRN (Reason: pain) Qty: 20 0RF Rx Instructions: Partial Fill upon patient request. prednisone 20 mg tablet 20 mg PO DAILY 7 Days Qty: 7 0RF naproxen 500 mg tablet 500 mg PO BID 7 Days Qty: 14 0RF hydrochlorothiazide 25 mg tablet 25 mg PO DAILY metoprolol succinate 25 mg tablet extended release 24 hr 25 mg PO BEDTIME Referrals: [facility] Family Medicine [Provider Group] (Call to establish and follow up with a primary care provider. If you already have a primary care provider, please follow up with them.) [facility] [Provider Group] (Call to establish and follow up with a primary care provider. If you already have a primary care provider, please follow up with them.) [facility] Primary [facility],[place] [Provider Group] (Call to establish and follow up with a primary care provider. If you already have a primary care provider, please follow up with them.)
[2022-07-08 07:42] LABS: Anion Gap 15 (12-20); Blood Urea Nitrogen 12 mg/dL (9-16); Calcium 8.4 mg/dL (8.4-10.2); Carbon Dioxide 30 mmol/L (22-29); Chloride 98 mmol/L (96-108); Creatinine Clr Calc Pharmacy 82.6; Estimated Glomerular Filt Rate > 60; Glucose Random 110 mg/dL (60-115); Potassium 3.1 mmol/L (3.3-5.1); Sodium 140 mmol/L (135-145)
[2022-07-08 07:57] VITALS: PULSE 106; RESP 16; O2SAT 98
[2022-07-08] MEDS: predniSONE 20 MG TABLET PO (07:58)
[2022-07-08] MEDS: Ketorolac Tromethamine 15 MG/ML VIAL IM (07:58)
== END 2022-07-08 08:05 | disposition home or self-care (01) ==
PROVIDERS: Emergency Provider Emergency Medicine Emergency Medical Services
DX: M10.9 Gout, unspecified (principal); M79.674 Pain in right toe(s); E78.5 Hyperlipidemia, unspecified; I10 Essential (primary) hypertension; Z79.02 Long term (current) use of antithrombotics/antiplatelets; Z79.899 Other long term (current) drug therapy
CPT/HCPCS: 36415; 80048; 85025; 96372; 99283; 99284; J1885

== ENCOUNTER 2022-08-26 11:37 | Outpatient (REF) | payer MEDICAID, SELFPAY ==
--- NOTE | ~2022-08-26 | XR_ITS ---
EXAMINATION: XR FOOT, LEFT CLINICAL INFORMATION: Pain with a history of gout. COMPARISON: None available. TECHNIQUE: AP, lateral, and oblique views of the left foot. FINDINGS: There is no evidence of acute fracture or dislocation of the left foot. There is narrowing with marginal sclerosis seen involving the 1st metatarsophalangeal joint with some mild erosive versus post surgical change involving the medial aspect of the head of the 1st metatarsal and with adjacent soft tissue swelling. No calcifications within the soft tissues are identified. Remainder of the joint spaces are maintained. No acute fracture is appreciated. Achilles calcaneal spur present. Vascular calcifications are seen. XR/XR foot LT min 3V IMPRESSION: Degenerative change of the left 1st metatarsophalangeal joint with associated soft tissue swelling and metatarsal head, question erosion versus post surgical change.
--- NOTE | ~2022-08-26 | XR_ITS ---
STUDY: Right tibia and fibula and left ankle, 08/26/2022. INDICATION: Chronic right ankle and right tibia and fibula pain TECHNIQUE: 2 view right tibia and fibula, 3 view right ankle FINDINGS: Intramedullary dana and anchoring screws are in place. Lucency identified about the proximal and distal aspects of the intramedullary dana without prior studies with which to compare. Well healed distal tibial and proximal fibular fractures are seen. Knee and ankle joints are intact. Mortise is normal in appearance. No acute fracture or dislocation. XR/XR tibia fibula RT 2V IMPRESSION: Well-healed right tibial and fibular fractures following ORIF. Proximal and distal lucencies about the right tibial intramedullary dana, loosening not excluded. Compare with any previous outside studies to determine if new or stable finding.
--- NOTE | ~2022-08-26 | XR_ITS ---
STUDY: Right tibia and fibula and left ankle, 08/26/2022. INDICATION: Chronic right ankle and right tibia and fibula pain TECHNIQUE: 2 view right tibia and fibula, 3 view right ankle FINDINGS: Intramedullary dana and anchoring screws are in place. Lucency identified about the proximal and distal aspects of the intramedullary dana without prior studies with which to compare. Well healed distal tibial and proximal fibular fractures are seen. Knee and ankle joints are intact. Mortise is normal in appearance. No acute fracture or dislocation. XR/XR ankle RT min 3V IMPRESSION: Well-healed right tibial and fibular fractures following ORIF. Proximal and distal lucencies about the right tibial intramedullary dana, loosening not excluded. Compare with any previous outside studies to determine if new or stable finding.
== END 2022-08-26 11:38 | disposition home or self-care (01) ==
LOC: HO.HHCX 11:37
PROVIDERS: Visit Provider Registered Nurse
DX: M25.571 Pain in right ankle and joints of right foot (principal); M79.672 Pain in left foot; M79.604 Pain in right leg; G89.29 Other chronic pain; Z87.39 Personal history of other diseases of the musculoskeletal system and connective tissue
CPT/HCPCS: 73590; 73610; 73630

== ENCOUNTER 2022-09-09 12:00 | Outpatient (REF) | payer MEDICAID, SELFPAY ==
[2022-09-11 22:04] LABS: Lyme Abs Screen <0.90 index
== END 2022-09-09 12:01 | disposition home or self-care (01) ==
LOC: HO.HHCL 12:00
PROVIDERS: Visit Provider Emergency Medicine
DX: M25.562 Pain in left knee (principal)
CPT/HCPCS: 36415; 86617; 86618

== ENCOUNTER 2022-10-01 09:04 | Outpatient (AMB) | payer MEDICAID, SELFPAY ==
--- NOTE | 2022-10-01 09:05 | A.OFFVIS_ITS ---
Intake Vital Signs 10/01/22 09:10 Height 5 ft 8 in Weight 160 lb BMI 24.3 Intake Visit Reasons: New Pt - Right Ankle Pain - Hx of Surgery in 2015 Intake Note: Lul is a 52 year old male who presents today as a new patient with complaints of Left leg pain. Patient reports that the whole leg hurts, the knee hip, ankle and feet. He has gout and has taken prednisone which is complete and is taking allopurinol. He feels this pain intermittently. He explains pressure the the base of the patella and down the front of the tibia. He also complains of right ankle painHx of Right Ankle surgery in [place] in about 2014. Allergies Penicillins Allergy (Severe, Verified 10/01/22 09:06) Unknown tetracycline Allergy (Severe, Verified 10/01/22 09:06) Unknown HPI New Pt - Right Ankle Pain - Hx of Surgery in 2015 HPI Details Lul is a 52 year old man who presents with complaints of left leg & right ankle pain. He complains of pain in his left knee, along with tightness, and he feels limited in his ROM. He says he is unable to bend his knee at times. He says this pain often radiates from his knee into his hip, or down into his ankle. He says he feels this pain in the tendons He works as a [ ] worker, and says he often works long hours on his feet or sitting on a stool, he denies any kneeling at work as this causes him pain. He has found some relief from NSAIDs and ice, along with hot showers when his knee is stiff. In regards to his right ankle he says he is sore to the touch, and often cause his foot to swell and the skin to turn red. He has a hx of right tibia IM nail, DOS: 2015 in [place]. He says he twisted and fell when walking home one evening. He has a Hx of gout and currently takes Allopurinol. He has taken Prednisone for this in the past, with relief. He says he is a smoker and occasionally drinks. 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 Review of Systems Const All systems reviewed & are unremarkable except as noted in HPI and below Physical Exam Vital Signs: BMI result Body Mass Index 24.3 Const General: no acute distress, alert and awake Orientation/consciousness: patient oriented x3 HEENT Head: Yes normocephalic and Yes atraumatic Eyes EOM: EOMs intact bilaterally Resp Effort & Inspection: normal respiratory effort and able to speak in complete sentences Cardio Jugular venous distension: no JVD Skin General skin exam: turgor normal Rashes: no rashes Neuro General: patient oriented x3 Extrem Other: Right Ankle: TTP anterior and laterally over screw head. No ankle or knee effusion. Well healed incision. Wlakin g normally. No skin changews Left Leg: Prepatellar bursitis with mild TTP. Psych Appearance: grossly normal Affect: normal affect Attitude: cooperative Results Reviewed Results Reviewed: I personally reviewed relevant radiographs. Well-healed right tibial and fibular fractures following ORIF. Proximal and distal lucencies about the right tibial intramedullary dana, loosening not excluded. Compare with any previous outside studies to determine if new or stable finding. Assessment & Plan Assessment & Plan (1) Prepatellar bursitis of left knee: Code(s): M70.42 - Prepatellar bursitis, left knee Plan: Radiating knee pain & stiffness, worse with weight-bearing activities and difficulties using stairs. I discussed treatment options, he is not interested in injections today. I recommend RICE with a knee brace, NSAIDs, PT, and he increase his daily activity levels. I counselled him on smoking cessation and discussed the safe use of NSAIDs. He can follow up prn. (2) Right ankle pain: Code(s): M25.571 - Pain in right ankle and joints of right foot Plan: This is a 52 year old man with right ankle pain, S/P right ankle IM nail with painful retained hardware. He has occasional pain and occasionally feels limited in his ADLs. He does not want to undergo LNAETTE. I recommend NSAIDs and smoking cessation (3) Painful orthopaedic hardware: Code(s): T84.84XA - Pain due to internal orthopedic prosthetic devices, implants and grafts, initial encounter (4) History of fracture of right ankle: Comment: S/P IM nail after tibia fx, [place], 2014 Code(s): Z87.81 - Personal history of (healed) traumatic fracture (5) Gout: Code(s): M10.9 - Gout, unspecified Plan Scribed for Tate Frost MD by Jani Stone, medical insurance claims specialist, on 10/01/22 at 9:40 AM, EST. Coding Level of Care Code New Pt Level 4 (76922) Diagnoses Prepatellar bursitis of left knee M70.42 Right ankle pain M25.571 Painful orthopaedic hardware T84.84XA History of fracture of right ankle Z87.81 Gout M10.9
[2022-10-01 09:10] VITALS: BMI 24.3
== END 2022-10-01 09:35 | disposition home or self-care (01) ==
PROVIDERS: Visit Provider Orthopaedic Surgery
DX: M70.42 Prepatellar bursitis, left knee (principal); M25.571 Pain in right ankle and joints of right foot; T84.84XA Pain due to internal orthopedic prosthetic devices, implants and grafts, initial encounter; M10.9 Gout, unspecified
CPT/HCPCS: 99204

== ENCOUNTER → 2022-10-01 09:04 | Outpatient (BNVA) | payer MEDICAID, SELFPAY | PROVIDERS: Visit Provider Orthopaedic Surgery | DX: M70.42 Prepatellar bursitis, left knee (principal); T84.84XA Pain due to internal orthopedic prosthetic devices, implants and grafts, initial encounter; M25.571 Pain in right ankle and joints of right foot; M10.9 Gout, unspecified; Z87.81 Personal history of (healed) traumatic fracture | CPT/HCPCS: 99202 ==

== ENCOUNTER 2022-12-15 11:08 | Outpatient (AMB) | payer SELFPAY ==
[2022-12-15 11:10] VITALS: BP 140/82; PULSE 111; TEMP 36.7; O2SAT 96; BMI 28.1
--- NOTE | 2022-12-15 11:10 | A.OFFVIS_ITS ---
Intake Vital Signs 12/15/22 11:10 Height 5 ft 8 in Weight 184 lb 15.485 oz BMI 28.1 BP 140/82 H Blood Pressure Location Rt brachial Position Sitting Pulse 111 H Pulse Source Pulse Oximeter Temp 98.1 F Temp Source Skin Pulse Oximetry (%) 96 Intake Visit Reasons: Gout Intake Note: New pt presents today for consult at the request of PCP, to discuss recurrent gout flares. C/o severe joint pain. Treated in the past with prednisone, he is currently on allopurinol 200mg. Hx of ankle pain s/p fracture 2014, had surgery in [place], hardware in place, follows with Ortho Dr Frost. 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 by: Self / Same As Patient Allergies Penicillins Allergy (Severe, Verified 12/15/22 11:13) Rash tetracycline Allergy (Severe, Verified 12/15/22 11:13) Unknown Medication List - Last Reconciled 12/15/22 by Mariah Perera MD allopurinol 200 mg PO DAILY atorvastatin 1 tab PO BEDTIME cholecalciferol (vitamin D3) 50 mcg PO DAILY epinephrine IM hydrochlorothiazide 25 mg PO DAILY metoprolol succinate ER 25 mg PO BEDTIME nicotine (polacrilex) 2 mg PO Q8H omega 7-gcr-ibz-fish oil 1,000 mg (120 mg-180 mg) caps PO omega-3 fatty acids mg PO HPI HPI Comments History of Present Illness Details This is a 52-year-old male who presents for gout evaluation. Patient states that he 1st started having gout around 2012. He would have 1-2 attacks per year. Usually affecting his feet, ankles, toes or knees. States that he would usually take prednisone taper which would take care of the attack very quickly. Sometimes takes ibuprofen. Over the last year however he he had about 10 attacks. He was started on allopurinol 100 mg daily 6 months ago and increase to 200 mg daily 2 weeks ago. Patient drinks about a 12 pack of beer in a week. In 1998 patient had a large left kidney stone, he had a cystoscopy and stent placed, afterwards he had a few episodes of kidney stones that passed on their own. He does not know the type of kidney stone. States that his most recent kidney stone was at least 15 years ago. States that he used to cycle frequently and would get dehydrated. This does not happen anymore. He is unaware of any family history of gout. She also mentions history of Raynaud's. States that his fingers change color in to white in the cold. Patient has a history of right ankle fracture and has hardware placed years ago. States that the hardware causes chronic pain. [facility] Medical History (Updated 12/15/22 @ 11:45 by Mariah Perera MD) Nephrolithiasis Raynaud phenomenon Right ankle pain History of fracture of right ankle Gout Elevated cholesterol HTN (hypertension) Surgical History (Updated 12/15/22 @ 11:43 by Mariah Perera MD) S/P cystoscopy with ureteral stent placement Hx of cataract extraction Hx of hernia repair History of surgery on lower extremity History of tonsillectomy Family History Mother Skin cancer Other Family history of diabetes mellitus Social History Alcohol intake: current Alcohol intake frequency: a few times a week Patient Tobacco Use Status: Current everyday Tobacco user Cigarette Packs Per Day: 0.5 Current occupational status: employed 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 Review of Systems [facility] [place] Reports arthralgias and Reports joint swelling Physical Exam Vital Signs: Last Vital Signs Temp 98.1 F 12/15/22 11:10 Pulse 111 H 12/15/22 11:10 BP 140/82 H 12/15/22 11:10 Pulse Ox 96 12/15/22 11:10 BMI result Body Mass Index 28.1 Const General: cooperative, healthy appearing and comfortable Nutritional Appearance: overweight Orientation/consciousness: patient oriented x3 Limitations: no limitations HEENT Head: Yes normocephalic and Yes atraumatic Resp Effort & Inspection: normal respiratory effort and able to speak in complete sentences Neuro General: patient oriented x3 Extrem Other: Mild osteoarthritic changes of both hands with no active synovitis No tophi noted Results Reviewed Results Reviewed: Labs 07/24/2022 Uric acid 7.8 mg/dL CMP unremarkable except for AST 37 (<35) Assessment & Plan Assessment & Plan (1) Gout: Code(s): M10.9 - Gout, unspecified Qualifiers: Gout site: multiple sites Gout etiology: idiopathic Chronicity: chronic Presence of tophus: without tophus Qualified Code(s): M1A.09X0 - Idiopathic chronic gout, multiple sites, without tophus (tophi) Plan: This is a 52-year-old male who presents for evaluation of gout. Started having gout episodes in 2012. He would have 1-2 attacks per year. Over the last year he had around 10 acute gout attacks. Started on allopurinol 100 mg daily by his PCP and uptitrated to 200 mg daily 2 weeks ago. Patient likely needs some prophylaxis. Check labs today. Continue allopurinol 200 mg daily Follow-up in 2 weeks Plan I spent 26 minutes reviewing patient's chart, evaluating patient, ordering diagnostic workup, counseling patient and documenting in the chart Orders: Orders Complete Blood Count Auto Diff Today M10.9 - Gout, unspecified Comprehensive Met. Panel Today M10.9 - Gout, unspecified Uric Acid Today M10.9 - Gout, unspecified Coding Level of Care Code New Pt Level 3 (63908) Diagnoses Idiopathic chronic gout of multiple sites without tophus M1A.09X0 Gout site: multiple sites Gout etiology: idiopathic Chronicity: chronic Presence of tophus: without tophus
== END 2022-12-15 11:38 | disposition home or self-care (01) ==
PROVIDERS: PCP Registered Nurse; Referring Provider Registered Nurse; Visit Provider Student in an Organized Health Care Education/Training Program
DX: M1A.09X0 Idiopathic chronic gout, multiple sites, without tophus (tophi) (principal)
CPT/HCPCS: 99203

== ENCOUNTER → 2022-12-15 11:08 | Outpatient (BNVA) | payer MEDICAID, SELFPAY | PROVIDERS: Visit Provider Student in an Organized Health Care Education/Training Program ==

== ENCOUNTER 2022-12-15 11:43 | Outpatient (REF) | payer OTHER, SELFPAY ==
[2022-12-15 13:28] LABS: MANUAL DIFF FLAG NO
[2022-12-15 13:50] LABS: Basophils Absolute Auto 0.1 X10*3/uL (0.0-0.2); Basophils Percent Auto 0.8 % (0-2); Eosinophils Absolute Auto 0.2 X10*3/uL (0.0-0.4); Eosinophils Percent Auto 1.9 % (0-4); Hematocrit 38.4 % (42.0-52.0); Hemoglobin 13.2 g/dl (14.0-18.0); Imm Gran Abs Auto 0.03 X10*3/uL (0.00-0.03); Imm Gran Pct Auto 0.3 % (0.0-0.4); Lymphocytes Absolute Auto 2.4 X10*3/uL (1.2-4.9); Lymphocytes Percent Auto 25.4 % (20-40); Mean Corpuscular HGB Conc 34.4 g/dl (31.0-36.0); Mean Corpuscular Hemoglobin 33.4 pg (27.0-33.0); Mean Corpuscular Volume 97.2 fL (80.0-98.0); Mean Platelet Volume 10.4 fL (9.4-12.4); Monocytes Absolute Auto 0.8 X10*3/uL (0.1-1.2); Monocytes Percent Auto 8.3 % (2-11); Neutrophils Percent Auto 63.3 % (45-73); Platelet Count 354 X10*3/uL (160-400); Red Blood Count 3.95 X10*6/uL (4.60-5.80); Red Cell Distribution Width 14.6 % (11.0-16.0); White Blood Count 9.5 X10*3/uL (4.8-10.8)
[2022-12-15 14:53] LABS: Alanine Aminotransferase 68 U/L (0-40); Albumin Level 3.9 g/dL (3.5-5.0); Alkaline Phosphatase 125 U/L (39-117); Anion Gap 17 (12-20); Aspartate Amino Transferase 85 U/L (5-37); Bilirubin Total 0.9 mg/dL (0.0-1.0); Blood Urea Nitrogen 7 mg/dL (9-16); Calcium 9.2 mg/dL (8.4-10.2); Carbon Dioxide 27 mmol/L (22-29); Chloride 98 mmol/L (96-108); Estimated Glomerular Filt Rate > 60; Glucose Random 97 mg/dL (60-115); Potassium 2.6 mmol/L (3.3-5.1); Sodium 139 mmol/L (135-145); Total Protein 7.1 g/dL (6.5-8.0); Uric Acid 8.3 mg/dL (3.4-7.0)
== END 2022-12-15 11:44 | disposition home or self-care (01) ==
LOC: HO.10HDL 11:43
PROVIDERS: Visit Provider Student in an Organized Health Care Education/Training Program
DX: M10.9 Gout, unspecified (principal)
CPT/HCPCS: 36415; 80053; 84550; 85025

== ENCOUNTER 2022-12-31 11:59 | Outpatient (AMB) | payer SELFPAY ==
[2022-12-31 12:03] VITALS: BP 170/82; PULSE 96; TEMP 36.2; O2SAT 99; BMI 28.0
--- NOTE | 2022-12-31 12:03 | A.OFFVIS_ITS ---
Intake Vital Signs 12/31/22 12:03 Height 5 ft 8 in Weight 184 lb 4.903 oz BMI 28.0 BP 170/82 H Blood Pressure Location Rt brachial Position Sitting Pulse 96 Pulse Source Pulse Oximeter Temp 97.2 F Temp Source Skin Pulse Oximetry (%) 99 Intake Visit Reasons: Gout Intake Note: Pt last seen 12/15/22, presents today for follow up and test results. Allopurinol 200mg daily. Has complaints of pain in right foot, wakes him up at night. BP elevated today, pt reports he forgot to take meds last night. 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: No Accompanied by: Self / Same As Patient Allergies Penicillins Allergy (Severe, Verified 12/31/22 12:05) Rash tetracycline Allergy (Severe, Verified 12/31/22 12:05) Unknown Medication List - Last Reconciled 12/31/22 by Mariah Perera MD allopurinol 200 mg PO DAILY atorvastatin 1 tab PO BEDTIME cholecalciferol (vitamin D3) 50 mcg PO DAILY epinephrine IM hydrochlorothiazide 25 mg PO DAILY metoprolol succinate ER 25 mg PO BEDTIME nicotine (polacrilex) 2 mg PO Q8H omega 8-hun-iuw-fish oil 1,000 mg (120 mg-180 mg) caps PO HPI HPI Comments History of Present Illness Details 52-year-old male with gout returns for f [facility] States that over the last 2 weeks has been having right foot pain. The pain is in the bottom of his toes. Worse with walking. He has been taking ibuprofen 800 mg once daily with some relief. Initial history: This is a 52-year-old male who presents for gout evaluation. Patient states that he 1st started having gout around 2012. He would have 1-2 attacks per year. Usually affecting his feet, ankles, toes or knees. States that he would usually take prednisone taper which would take care of the attack very quickly. Sometimes takes ibuprofen. Over the last year however he he had about 10 attacks. He was started on allopurinol 100 mg daily 6 months ago and increase to 200 mg daily 2 weeks ago. Patient drinks about a 12 pack of beer in a week. In 1998 patient had a large left kidney stone, he had a cystoscopy and stent placed, afterwards he had a few episodes of kidney stones that passed on their own. He does not know the type of kidney stone. States that his most recent kidney stone was at least 15 years ago. States that he used to cycle frequently and would get dehydrated. This does not happen anymore. He is unaware of any family history of gout. She also mentions history of Raynaud's. States that his fingers change color in to white in the cold. Patient has a history of right ankle fracture and has hardware placed years ago. States that the hardware causes chronic pain. [facility] Medical History Nephrolithiasis Raynaud phenomenon Right ankle pain History of fracture of right ankle Gout Elevated cholesterol HTN (hypertension) Surgical History S/P cystoscopy with ureteral stent placement Hx of cataract extraction Hx of hernia repair History of surgery on lower extremity History of tonsillectomy Family History Mother Skin cancer Other Family history of diabetes mellitus Social History Alcohol intake: current Alcohol intake frequency: a few times a week Patient Tobacco Use Status: Current everyday Tobacco user Cigarette Packs Per Day: 0.5 Current occupational status: employed 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 Review of Systems [facility] [place] Reports arthralgias Physical Exam Vital Signs: Last Vital Signs Temp 97.2 F 12/31/22 12:03 Pulse 96 12/31/22 12:03 BP 170/82 H 12/31/22 12:03 Pulse Ox 99 12/31/22 12:03 BMI result Body Mass Index 28.0 Const General: cooperative, healthy appearing and comfortable Nutritional Appearance: overweight Orientation/consciousness: patient oriented x3 Limitations: no limitations HEENT Head: Yes normocephalic and Yes atraumatic Resp Effort & Inspection: normal respiratory effort and able to speak in complete sentences Neuro General: patient oriented x3 Extrem Other: Mild osteoarthritic changes of both hands with no active synovitis Right 2nd and 3rd MTP tenderness without swelling No tophi noted Results Reviewed Results Reviewed: Labs 07/24/2022 Uric acid 7.8 mg/dL CMP unremarkable except for AST 37 (<35) Assessment & Plan Assessment & Plan (1) Gout: Code(s): M10.9 - Gout, unspecified Qualifiers: Gout site: multiple sites Gout etiology: idiopathic Chronicity: chronic Presence of tophus: without tophus Qualified Code(s): M1A.09X0 - Idiopathic chronic gout, multiple sites, without tophus (tophi) Plan: This is a 52-year-old male who presents for evaluation of gout. Started having gout episodes in 2012. He would have 1-2 attacks per year. Over the last year he had around 10 acute gout attacks. Started on allopurinol 100 mg daily by his PCP and uptitrated to 200 mg daily 1 month ago Uric acid level 8.3. Still not at target Increase allopurinol to 300 mg daily. His LFTs are elevated. Will avoid co lchicine. Start prednisone 5 mg daily for prophylaxis Advised patient to stop alcohol consumption due to its association with gout flare-ups and his transaminitis. Labs before next visit in 2 months (2) Transaminitis: Code(s): R74.01 - Elevation of levels of liver transaminase levels Plan: Follow-up with PCP Plan I spent 26 minutes reviewing patient's chart, evaluating patient, ordering diagnostic workup, counseling patient and documenting in the chart Orders: Orders Comprehensive Met. Panel 2 Months M10.9 - Gout, unspecified Uric Acid 2 Months M10.9 - Gout, unspecified Medications: New prednisone 5 mg PO DAILY 60 tabs 0RF allopurinol 300 mg PO DAILY 90 tabs 0RF Coding Level of Care Code Est Pt Level 4 (39918) Diagnoses Idiopathic chronic gout of multiple sites without tophus M1A.09X0 Gout site: multiple sites Gout etiology: idiopathic Chronicity: chronic Presence of tophus: without tophus Transaminitis R74.01
== END 2022-12-31 12:34 | disposition home or self-care (01) ==
LOC: HO.RHE 12:00
PROVIDERS: PCP Registered Nurse; Visit Provider Student in an Organized Health Care Education/Training Program
DX: M1A.09X0 Idiopathic chronic gout, multiple sites, without tophus (tophi) (principal); R74.01 Elevation of levels of liver transaminase levels
CPT/HCPCS: 99214

== ENCOUNTER → 2022-12-31 11:59 | Outpatient (BNVA) | payer OTHER, SELFPAY | PROVIDERS: PCP Registered Nurse; Visit Provider Student in an Organized Health Care Education/Training Program | DX: M1A.09X0 Idiopathic chronic gout, multiple sites, without tophus (tophi) (principal); R74.01 Elevation of levels of liver transaminase levels | CPT/HCPCS: 99212 ==

== ENCOUNTER 2024-08-24 08:11 | Emergency (ER) | payer SELFPAY ==
--- NOTE | ~2024-08-24 | XR_ITS ---
EXAMINATION: XR ANKLE, LEFT CLINICAL INFORMATION: swelling and pain, gout? COMPARISON: None available. TECHNIQUE: AP, lateral, and mortise views of the left ankle. FINDINGS: No fracture, dislocation, or suspicious bone lesion. Normal bone mineralization. Normal alignment. Ankle mortise is intact. The talar dome is preserved. Joint spaces are preserved. No significant arthropathy. No erosions identified. There is a small dorsal calcaneal spur. No significant ankle joint effusion. There is diffuse circumferential soft tissue swelling. There are subtle vascular calcifications present. XR/XR ankle LT 2V IMPRESSION: 1. No acute bony abnormalities. No joint erosions identified. 2. Diffuse soft tissue swelling. Electronically signed by: Clarence Stewart MD 08/24/2024 09:56 AM EDT
--- NOTE | ~2024-08-24 | US_ITS ---
EXAMINATION: US TRIPLEX LOWER EXTREMITY, LEFT CLINICAL INFORMATION: Pain and edema, left lower extremity. COMPARISON: None available. TECHNIQUE: Color-flow triplex imaging with spectral analysis and compression Doppler were performed on the left lower extremity. FINDINGS: Respiratory variation, normal compression and augmented flow are demonstrated in the interrogated left common femoral vein, superficial femoral vein, profunda femoral vein, popliteal vein and midcalf peroneal and posterior tibial venous segments . There is no Capone's cyst. US/US venous duplex LE IMPRESSION: No acute deep venous interrogated veins, left lower extremity. Negative for DVT.. Electronically signed by: Felipe Pittman MD 08/24/2024 09:33 AM EDT
[2024-08-24 08:14] VITALS: BP 177/100; PULSE 96; RESP 18; TEMP 37; O2SAT 98; BMI 24.3
[2024-08-24 08:27] LABS: MANUAL DIFF FLAG NO
[2024-08-24 08:29] LABS: Basophils Percent Auto 0.2 % (0-2); Eosinophils Absolute Auto 0.1 X10*3/uL (0.0-0.4); Eosinophils Percent Auto 0.7 % (0-4); Hematocrit 39.7 % (42.0-52.0); Hemoglobin 14.2 g/dl (14.0-18.0); Imm Gran Abs Auto 0.03 X10*3/uL (0.00-0.03); Imm Gran Pct Auto 0.4 % (0.0-0.4); Lymphocytes Absolute Auto 1.3 X10*3/uL (1.2-4.9); Lymphocytes Percent Auto 15.8 % (20-40); Mean Corpuscular HGB Conc 35.8 g/dl (31.0-36.0); Mean Corpuscular Hemoglobin 36.9 pg (27.0-33.0); Mean Corpuscular Volume 103.1 fL (80.0-98.0); Mean Platelet Volume 9.8 fL (9.4-12.4); Monocytes Absolute Auto 0.8 X10*3/uL (0.1-1.2); Neutrophils Absolute Auto 6.2 x10*3/uL (2.0-8.3); Neutrophils Percent Auto 73.9 % (45-73); Platelet Count 283 X10*3/uL (160-400); Red Blood Count 3.85 X10*6/uL (4.60-5.80); White Blood Count 8.4 X10*3/uL (4.8-10.8)
[2024-08-24 08:48] LABS: Alanine Aminotransferase 15 U/L (0-40); Albumin Level 3.3 g/dL (3.5-5.0); Alkaline Phosphatase 137 U/L (39-117); Anion Gap 13 (12-20); Aspartate Amino Transferase 34 U/L (5-37); Bilirubin Total 1.2 mg/dL (0.0-1.0); Blood Urea Nitrogen 4 mg/dL (9-16); Calcium 8.1 mg/dL (8.4-10.2); Carbon Dioxide 20 mmol/L (22-29); Chloride 106 mmol/L (96-108); Creatinine Clr Calc Pharmacy 139.2; Estimated Glomerular Filt Rate > 60; Glucose Random 89 mg/dL (60-115); Magnesium 1.4 mg/dL (1.6-2.6); Potassium 3.2 mmol/L (3.3-5.1); Sodium 136 mmol/L (135-145); Total Protein 6.5 g/dL (6.5-8.0)
--- NOTE | 2024-08-24 09:20 | ED.GENADULT ---
HPI - General Adult General Chief complaint: General Medical Stated complaint: Gout Time Seen by Provider: 08/24/24 08:37 Source: patient Mode of arrival: ambulatory Limitations: no limitations History of Present Illness ED Provider: DR. Sanchez HPI narrative: a 54-year-old male history of gout came in for evaluation of left ankle/bilateral knee pain and swelling. 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 No fever, no chills. Had similar episodes in the past. Related Data Home Medications ?Medication ?Instructions ?Recorded ?Confirmed hydrochlorothiazide 25 mg tablet 25 mg PO DAILY 10/10/21 12/15/22 metoprolol succinate 25 mg 25 mg PO BEDTIME 10/10/21 12/15/22 tablet,extended release 24 hr atorvastatin 20 mg tablet 1 tab PO BEDTIME 11/17/21 12/15/22 cholecalciferol (vitamin D3) 50 50 mcg PO DAILY 12/14/22 12/15/22 mcg (2,000 unit) capsule epinephrine 0.3 mg/0.3 mL IM 12/14/22 12/15/22 injection, auto-injector nicotine (polacrilex) 2 mg buccal 2 mg PO Q8H 12/14/22 12/15/22 lozenge omega 4-tsy-myd-fish oil 1,000 mg cap PO 12/14/22 12/15/22 (120 mg-180 mg) capsule allopurinol 100 mg tablet 200 mg PO DAILY 12/15/22 12/15/22 Previous Rx's ?Medication ?Instructions ?Recorded prednisone 5 mg tablet 5 mg PO DAILY #60 tabs 12/31/22 allopurinol 300 mg tablet 300 mg PO DAILY #90 tabs 05/03/23 prednisone 20 mg tablet 20 mg PO BID #10 tabs 08/24/24 Allergies Allergy/AdvReac Type Severity Reaction Status Date / Time Penicillins Allergy Severe Rash Verified 08/24/24 08:15 tetracycline Allergy Severe Unknown Verified 08/24/24 08:15 Review of Systems Review of Systems: All other systems are reviewed and are negative Constitutional: Reports as per HPI and Reports no additional constitutional complaints Eyes: Reports as per HPI and Reports no additional eye complaints Reports system reviewed and no additional complaints, except as documented Cardiovascular: Reports as per HPI and Reports no additional cardiovascular complaints Respiratory: Reports as per HPI and Reports no additional respiratory complaints Gastrointestinal: Reports as per HPI and Reports no additional gastrointestinal complaints Genitourinary: Reports no additional female genitourinary complaints Musculoskeletal: Reports no additional musculoskeletal complaints Skin/Breast: Reports system reviewed and no additional complaints, except as docu Psychiatric: Reports no additional psychiatric complaints Endocrine: Reports no additional endocrine complaints Hematologic/Lymphatic: Reports no additional hematologic/lymphatic complaints Allergic/Immunologic: Reports no additional allergic/immunologic complaints Reports system reviewed and no additional complaints, except as documented and Reports Abnormal speech present [facility] Past Medical History Medical History Nephrolithiasis Raynaud phenomenon Right ankle pain History of fracture of right ankle Gout Elevated cholesterol HTN (hypertension) Surgical History S/P cystoscopy with ureteral stent placement Hx of cataract extraction Hx of hernia repair History of surgery on lower extremity History of tonsillectomy Family History Family History Mother Skin cancer Other Family history of diabetes mellitus Social History Social History Alcohol intake: current Alcohol intake frequency: 3 or more drinks per day Alcohol type: beer Patient Tobacco Use Status: Current everyday Tobacco user Cigarette Packs Per Day: 0.5 Smoked in Last 30 Days: Yes Use of substances other than those prescribed or required for medical reasons: No Advance Directives: No Advance Directives Information Provided: Yes Do you have a plan to hurt others: No Plan Current occupational status: employed 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 Blood pressure elevated. Heart rate normal. Respiratory rate normal. Temperature normal. Oxygen saturation normal. Appearance: Alert. Oriented X3. No acute distress. Head: Normal external exam. Normocephalic. Atraumatic. No Holt signs noted. No raccoon eyes noted Eyes: PERRLA. EOMI. Conjunctiva and sclera normal. Eyelids normal. ENT: TM's Normal. Pharynx normal. Uvula midline. Moist mucous membranes. No trismus noted. No drooling noted. No muffled voice noted. Neck: Normal inspection. Neck supple. FROM. No adenopathy. Thyroid Normal. No meningeal signs. No neck mass noted. CVS: Normal heart rate and rhythm. Heart sound normal. No murmurs noted. Pulses normal throughout. Respiratory: No respiratory distress. Painless inspiration. Breath sounds normal. No wheezes/rales/rhonchi noted. Chest nontender. No accessory muscle usage noted or decreased air movement noted. Abdomen: Soft and nontender. Bowel sounds normal in all 4 quadrants. No distention noted. No organomegaly noted. No visible injury noted. Back: No CVA tenderness. Full range of motion noted. Skin: Skin warm and dry. Normal skin color. Normal skin turgor. No rashes/lesions/lacerations noted. Extremities: Left ankle is slightly swollen, slightly hot to touch, no redness, full range of motion, bilateral knee slight fusion, neurovascularly intact bilateral lower extremity. Neuro: Oriented X 3. Cranial nerve exam: II-XII are grossly intact No motor deficit. No sensory deficit. Reflexes normal. Course Reevaluation(s) Reevaluation #1: 54-year-old male came in with right ankle swelling and pain had history of gout arthritis, patient significantly improved in the ED after was given IV steroids. Will start short course of 5 days of steroids. K+ , Mg was replaced in the ED. Patient is able to ambulate with much less pain now. Instructed to follow-up with PCP. Time: 13:40 Medications Administered Discontinued Medications Generic Name Dose Route Start Last Admin Trade Name Freq PRN Reason Stop Dose Admin Magnesium Sulfate 2 gm in 50 mls @ 25 mls/hr 08/24/24 08:56 08/24/24 12:57 Magnesium Sulfate/H2o IV 08/24/24 10:55 Infused ONCE ONE Infusion Potassium Chloride 10 meq in 100 mls @ 100 mls/hr 08/24/24 08:56 08/24/24 12:58 Potassium Chloride/H20 IV 08/24/24 09:55 Infused ONCE ONE Infusion Ketorolac Tromethamine 15 mg 08/24/24 08:56 08/24/24 11:09 Ketorolac Tromethamine 30 Mg/Ml Vial IVPUSH 08/24/24 08:57 15 mg ONCE ONE Administration Methylprednisolone Sodium Succinate 125 mg 08/24/24 09:15 08/24/24 11:11 Methylprednisolone Sod Succ 125 Mg/2 Ml Vial IVPUSH 08/24/24 09:16 125 mg ONCE ONE Administration Potassium Chloride 40 meq 08/24/24 08:56 08/24/24 11:15 Potassium Chloride Packet 20 Meq Packet PO 08/24/24 08:57 40 meq ONCE ONE Administration Medical Decision Making Differential Diagnosis Differential Diagnoses: The differential diagnosis associated with the presentation includes ( Gout arthritis, left ankle injury, DVT left lower extremity , electrolyte derangement, severe anemia.) Admission/Observation Consideration of admission/observation: Escalation of care including admission/observation considered Lab Data MDM Lab Attestation statement: I reviewed the patient's lab results. 08/24/24 08:20 08/24/24 08:20 Labs: Lab Results 08/24/24 Range/Units 08:20 WBC 8.4 (4.8-10.8) X10*3/uL RBC 3.85 L (4.60-5.80) X10*6/uL Hgb 14.2 (14.0-18.0) g/dl Hct 39.7 L (42.0-52.0) % MCV 103.1 H (80.0-98.0) fL MCH 36.9 H (27.0-33.0) pg MCHC 35.8 (31.0-36.0) g/dl RDW 16.0 (11.0-16.0) % Plt Count 283 (160-400) X10*3/uL MPV 9.8 (9.4-12.4) fL Immature Gran % (Auto) 0.4 (0.0-0.4) % Neut % (Auto) 73.9 H (45-73) % Lymph % (Auto) 15.8 L (20-40) % [place] % (Auto) 9.0 (2-11) % Eos % (Auto) 0.7 (0-4) % Baso % (Auto) 0.2 (0-2) % Lymph # (Auto) 1.3 (1.2-4.9) X10*3/uL [place] # (Auto) 0.8 (0.1-1.2) X10*3/uL Eos # (Auto) 0.1 (0.0-0.4) X10*3/uL Baso # (Auto) 0.0 (0.0-0.2) X10*3/uL Abs Immat Gran (auto) 0.03 (0.00-0.03) X10*3/uL Absolute Neuts (auto) 6.2 (2.0-8.3) x10*3/uL Absolute Nucleated RBC 0.000 (0.0-0.012) X10*3/uL Nucleated RBC % (auto) 0.0 (0.0-0.2) /100WBC Sodium 136 (135-145) mmol/L Potassium 3.2 L (3.3-5.1) mmol/L Chloride 106 (96-108) mmol/L Carbon Dioxide 20 L (22-29) mmol/L Anion Gap 13 (12-20) BUN 4 L (9-16) mg/dL Creatinine 0.58 (0.5-1.4) mg/dL Estim Creat Clear Calc 139.2 Estimated GFR > 60 Random Glucose 89 (60-115) mg/dL Calcium 8.1 L D (8.4-10.2) mg/dL Magnesium 1.4 L* (1.6-2.6) mg/dL Total Bilirubin 1.2 H (0.0-1.0) mg/dL AST 34 (5-37) U/L ALT 15 (0-40) U/L Alkaline Phosphatase 137 H (39-117) U/L B-Natriuretic Peptide 163 H (<100) pg/mL Total Protein 6.5 (6.5-8.0) g/dL Albumin 3.3 L (3.5-5.0) g/dL Independent Interpretation I performed an independent interpretation of an: Plain X-Ray ( Left ankle: No acute abnormality, no fracture) and Ultrasound ( Left lower extremity venous Doppler: No DVT.) Radiology Impression Discussion of test interpretation with radiology: I have reviewed the radiologist's reading. Discharge Plan Discharge Clinical Impression: Gout, arthritis, Acute hypokalemia, Hypomagnesemia Patient Disposition: Home, Self-Care Instructions: Gout (ED), Hypokalemia (ED), Hypomagnesemia (ED) Prescriptions: New prednisone 20 mg tablet 20 mg PO BID Qty: 10 0RF No Action allopurinol 300 mg tablet 300 mg PO DAILY Qty: 90 0RF atorvastatin 20 mg tablet 1 tab PO BEDTIME hydrochlorothiazide 25 mg tablet 25 mg PO DAILY metoprolol succinate 25 mg tablet extended release 24 hr 25 mg PO BEDTIME allopurinol 100 mg tablet 200 mg PO DAILY nicotine (polacrilex) 2 mg lozenge 2 mg PO Q8H omega 0-pvl-ppl-fish oil 1,000 mg (120 mg-180 mg) capsule PO epinephrine 0.3 mg/0.3 mL auto-injector IM cholecalciferol (vitamin D3) 50 mcg (2,000 unit) capsule 50 mcg PO DAILY prednisone 5 mg tablet 5 mg PO DAILY Qty: 60 0RF Stand Alone Forms: Work/School Release Print Language: Croatian
[2024-08-24 09:41] LABS: B Type Natriuretic Peptide 163 pg/mL (<100)
[2024-08-24] MEDS: Ketorolac Tromethamine 30 MG/ML VIAL 15 MG IVPUSH (11:09)
[2024-08-24] MEDS: methylPREDNISolone Sod Succ 125 MG/2 ML VIAL IVPUSH (11:11)
[2024-08-24] MEDS: Potassium Chloride Packet 20 MEQ PACKET 40 MEQ PO (11:15)
[2024-08-24] MEDS: Magnesium Sulfate/H2O 2 GM/50 ML PIGGYBACK IV (11:21)
[2024-08-24] MEDS: Potassium Chloride/H20 10 MEQ/100 ML PIGGYBACK 100 MEQ IV (11:22)
[2024-08-24 11:30] VITALS: BP 173/95; PULSE 95; RESP 16; TEMP 37.1; O2SAT 97
--- NOTE | 2024-08-24 11:36 | PC.NURSE ---
Pt A&O X4 VSS states pain bilat knees improved nwith Toradol. Bilat knees edematous. Pt IV meds infusing as ordered. No other complaints- Tolerated PO potassium well.
[2024-08-24 13:40] VITALS: BP 128/76; PULSE 68; RESP 16; TEMP 36.8; O2SAT 96
== END 2024-08-24 13:54 | disposition home or self-care (01) ==
PROVIDERS: Emergency Provider Emergency Medicine
DX: M10.061 Idiopathic gout, right knee (principal); M10.062 Idiopathic gout, left knee; R60.0 Localized edema; M25.572 Pain in left ankle and joints of left foot; F17.210 Nicotine dependence, cigarettes, uncomplicated; Z79.899 Other long term (current) drug therapy
CPT/HCPCS: 36415; 73600; 80053; 83735; 83880; 85025; 93971; 96365; 96366; 96375; 99284; J1885; J2919; J3475; J3480

== ENCOUNTER → 2024-08-24 08:56 | Outpatient (BNV) | payer SELFPAY | PROVIDERS: Emergency Provider Emergency Medicine; Visit Provider Radiology Diagnostic Radiology | DX: R22.42 Localized swelling, mass and lump, left lower limb (principal) | CPT/HCPCS: 73600; 93971 ==

== ENCOUNTER 2024-10-31 13:06 | Emergency (ER) | payer OTHER, SELFPAY ==
--- NOTE | ~2024-10-31 | XR_ITS ---
EXAMINATION: XR HAND, LEFT CLINICAL INFORMATION: lacs to palmar aspect of L 2-4 digits COMPARISON: None available. TECHNIQUE: PA, lateral, and oblique views of the left hand. FINDINGS: No acute cortical disruption or gross malalignment. No metallic or radiopaque foreign body. No gross subcutaneous emphysema. No lytic or blastic lesions. Limited lateral projection. XR/XR hand LT min 3V IMPRESSION: No acute fracture or dislocation. No gross radiopaque foreign body. Electronically signed by: Felipe Pittman MD 10/31/2024 01:52 PM EDT
[2024-10-31 13:26] VITALS: BP 167/90; PULSE 97; RESP 18; TEMP 36.3; O2SAT 96; BMI 23.7
--- NOTE | 2024-10-31 13:26 | ED.SKABFB ---
HPI - Skin/Abscess/Foreign Bdy General Chief complaint: Extremity Injury, Upper Stated complaint: Lac multiple fingers Time Seen by Provider: 10/31/24 14:13 Source: patient Mode of arrival: ambulatory Limitations: no limitations History of Present Illness ED Provider: Paula Collins PA-C HPI narrative: Patient here for laceration to his left palm. He is left-hand dominant but writes with his right hand. 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 He sustained a small abrasion to his left knee but was concerned about how deep the wound was on his left hand. Patient received a rapid medical exam in triage for which they evaluated the wound as well as ordered imaging of the left hand. Patient's tetanus status is up-to-date. 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 He is denying any paresthesias or weakness he is not on any anticoagulation. He reports his hand is feeling like it is throbbing. No treatment prior to arrival. Related Data Home Medications ?Medication ?Instructions ?Recorded ?Confirmed hydrochlorothiazide 25 mg tablet 25 mg PO DAILY 10/10/21 12/15/22 metoprolol succinate 25 mg 25 mg PO BEDTIME 10/10/21 12/15/22 tablet,extended release 24 hr atorvastatin 20 mg tablet 1 tab PO BEDTIME 11/17/21 12/15/22 cholecalciferol (vitamin D3) 50 50 mcg PO DAILY 12/14/22 12/15/22 mcg (2,000 unit) capsule epinephrine 0.3 mg/0.3 mL IM 12/14/22 12/15/22 injection, auto-injector nicotine (polacrilex) 2 mg buccal 2 mg PO Q8H 12/14/22 12/15/22 lozenge omega 5-[id number]-fish oil 1,000 mg cap PO 12/14/22 12/15/22 (120 mg-180 mg) capsule allopurinol 100 mg tablet 200 mg PO DAILY 12/15/22 12/15/22 Previous Rx's ?Medication ?Instructions ?Recorded prednisone 5 mg tablet 5 mg PO DAILY #60 tabs 12/31/22 allopurinol 300 mg tablet 300 mg PO DAILY #90 tabs 05/03/23 prednisone 20 mg tablet 20 mg PO BID #10 tabs 08/24/24 cephalexin 500 mg capsule 500 mg PO TID #21 caps 10/31/24 mupirocin 2 % topical ointment 1 appl topical TID #15 grams 10/31/24 ([facility]) Allergies Allergy/AdvReac Type Severity Reaction Status Date / Time Penicillins Allergy Severe Rash Verified 10/31/24 13:29 tetracycline Allergy Severe Unknown Verified 10/31/24 13:29 Review of Systems Review of Systems: Yes all other systems are reviewed and are negative [facility] Past Medical History Attestation statement: The following information was validated with the patient. Source: old records reviewed and nursing notes reviewed Medical History Nephrolithiasis Raynaud phenomenon Right ankle pain History of fracture of right ankle Gout Elevated cholesterol HTN (hypertension) Surgical History S/P cystoscopy with ureteral stent placement Hx of cataract extraction Hx of hernia repair History of surgery on lower extremity History of tonsillectomy Family History Family History Mother Skin cancer Other Family history of diabetes mellitus Social History Social History Alcohol intake: current Alcohol intake frequency: 3 or more drinks per day Alcohol type: beer Patient Tobacco Use Status: Current everyday Tobacco user Cigarette Packs Per Day: 0.5 Advance Directives: No Advance Directives Information Provided: Yes Current occupational status: employed Current occupation: [employer] Worker Physical Exam Exam: Exam: Vital Signs: Vital Signs: Last Vital Signs Temp 98.1 F 10/31/24 15:55 Pulse 93 10/31/24 15:55 Resp 18 10/31/24 15:55 BP 144/65 H 10/31/24 15:55 Pulse Ox 97 10/31/24 15:55 O2 Del Method Room Air 10/31/24 15:55 BMI result Body Mass Index 23.7 Const: Other: See imaging for visualization length and shape of lacerations to the left hand. Cap refill less 3 seconds distal pulses 2+ there was visible subcutaneous tissue prior to suture placement. DTRs intact no visible tendon or arterial bleed project specialist strength is 4+ throughout, minor superficial abrasion left knee, no respiratory distress appearing well, areas of laceration or mildly tender to palpation General: cooperative and healthy appearing Course Course Course Narrative: This is a Rapid Medical Examination (RME) performed by Jacob Bellamy PA-C in triage. Full HPI, ROS, assessment and treatment plan per primary provider in the Main ED. 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 Reports carrying a heavy cabinet, tripped over foam pad, and fell forward causing the cabinet to drop on his left hand. tetanus UTD. PE/vitals: lacs to palmar aspects of left 2nd/3rd/4th digits, FROM intact, finger strength intact. bleeding controlled, wound dressed in triage. abrasion to L knee, FROM, ambulating w/ steady gait. Plan: xrs, lac repair Medications Administered Discontinued Medications Generic Name Dose Route Start Last Admin Trade Name Freq PRN Reason Stop Dose Admin Acetaminophen 975 mg 10/31/24 14:19 10/31/24 14:40 Acetaminophen 325 Mg Tablet PO 10/31/24 14:20 975 mg ONCE ONE Administration Lidocaine HCl 10 ml 10/31/24 14:31 10/31/24 14:55 Lidocaine Hcl 2 % 20 Ml Vial INFILTRATI 10/31/24 14:32 10 ml ONCE ONE Administration Medical Decision Making Medical Decision Making MDM Narrative: Patient presents to ED today for evaluation of laceration to the left index and middle finger. JULI is direct blow. This is work related. Upon arrival to ED, patient is afebrile with stable vitals and well-appearing.? History and physical as stated above.?? Patient's tetanus was UTD. No evidence of foreign body, given bony tenderness and mechanism of injury x-rays were obtained from triage which showed no evidence for foreign body or fracture. No evidence of arterial bleed or tendon rupture. No evidence of neurovascular compromise. ROM intact. Wound was cleansed and explored. Discussed wound repair options before proceeding with care. Wound was closed with simple interrupted stitches in both fingers, see procedure note.? Discussed wound care with the patient.? The wound was not heavily contaminated, but given mechanism, PO antibiotics were prescribed. Recommend follow-up for wound recheck and suture removal with occupational medicine - time frame in plan.? I thoroughly discussed if concerned for any signs of infection to follow up right away.? Discussed symptomatic treatment with the patient.? Discussed other return precautions as detailed in plan.?Maurice verbalized understanding of the above plan and is in agreement with the above plan.? The patient was discharged home in stable condition with return precautions.? Differential Diagnosis Differential Diagnoses: The differential diagnosis associated with the presentation includes crush injury laceration with/ without f/b contusion fracture tendon rupture/ arterial bleed Admission/Observation Consideration of admission/observation: Escalation of care including admission/observation considered Patient would have been admitted to the hospital had her work up had any findings where hospital admission was appropriate and her clinical presentation warranted hospital admission. Independent Interpretation I performed an independent interpretation of an: Plain X-Ray Interpretation: No obvious fracture or foreign body Radiology Impression Discussion of test interpretation with radiology: I have reviewed the radiologist's reading. Prescription Management I considered prescription management with: Pain Medication and Antibiotic Procedures Laceration Laceration 1: Site: upper extremity (middle finger) Side (If applicable): left Size (cm): 2.0 Description: linear Depth: simple, single layer Local Anesthetic: lidocaine 2% Amount of anesthesia used (mL): 2.0 Pre-repair: wound explored Skin layer closed with: other (polyprolene) Size (cm): 4-0 Number of sutures: 5 Technique: simple, interrupted Laceration 2: Site: upper extremity (index finger) Side (If applicable): left Size (cm): 3.0 Description: other (arrow shaped) Depth: simple, single layer Local Anesthetic: lidocaine 2% Amount of anesthesia used (mL): 3.0 Pre-repair: wound explored Skin layer closed with: other (polyprolene) Size (cm): 4-0 Number of sutures: 7 Technique: simple, interrupted Discharge Plan Discharge Clinical Impression: Laceration of left index finger, Laceration of left middle finger, Contusion of hand, left Patient Disposition: Home, Self-Care Instructions: Laceration (ED) Additional Instructions: You had 5 sutures placed on your left middle finger and 7 sutures placed on your left index finger. Keep clean and dry until tomorrow. After this showering and washing the wound is OK but do not allow the wound to soak. Avoid unclean water such as pools, hot tubs, ocean, etc. until the sutures are removed. Keep the area clean with gentle soap and water. Please clean the wound daily, starting in [address] the wound under any direct, high pressure streams of water. Cover the wound with antibiotic ointment and a band-aid or sterile gauze dressing 2-3 times a day.? You will need your sutures removed in 10 days.? Please return to the clinic for suture removal. Return immediately or call your doctor for signs of infection that include the following:? Red streaks from wound or surrounding the wound, pus draining from the wound, increased pain, or fever > 100.4 degrees F. Also return for any difficulty moving finger(s) or hand, or cold/ numb or weak extremity, difficulty arranging follow-up, re-injury, or any concerns.? The amount of scarring will take 6 months to a year to be determined.? To minimize the risk of scarring, avoid prolonged sunlight exposure (i.e., use sunscreen when the sutures are removed). Prescriptions: New cephalexin 500 mg capsule 500 mg PO TID Qty: 21 0RF mupirocin [Centany] 2 % ointment 1 appl topical TID Qty: 15 0RF No Action allopurinol 300 mg tablet 300 mg PO DAILY Qty: 90 0RF atorvastatin 20 mg tablet 1 tab PO BEDTIME prednisone 20 mg tablet 20 mg PO BID Qty: 10 0RF hydrochlorothiazide 25 mg tablet 25 mg PO DAILY metoprolol succinate 25 mg tablet extended release 24 hr 25 mg PO BEDTIME allopurinol 100 mg tablet 200 mg PO DAILY nicotine (polacrilex) 2 mg lozenge 2 mg PO Q8H omega [id number]-fish oil 1,000 mg (120 mg-180 mg) capsule PO epinephrine 0.3 mg/0.3 mL auto-injector IM cholecalciferol (vitamin D3) 50 mcg (2,000 unit) capsule 50 mcg PO DAILY prednisone 5 mg tablet 5 mg PO DAILY Qty: 60 0RF Referrals: [facility] [Outside] - 2 days Referral Note: wc follow up, wound recheck Stand Alone Forms: Work/School Release Interventions: ED Discharge Assessment Last Done: 10/31/24 15:55 Discharge Date/Time: 10/31/24 16:16 Print Language: Croatian
[2024-10-31] MEDS: Lidocaine HCl 2 % 20 ML VIAL 10 ML INFILTRATI (14:55)
[2024-10-31 15:55] VITALS: BP 144/65; PULSE 93; RESP 18; TEMP 36.7; O2SAT 97
== END 2024-10-31 16:16 | disposition home or self-care (01) ==
PROVIDERS: Emergency Provider Emergency Medicine
DX: S61.211A Laceration without foreign body of left index finger without damage to nail, initial encounter (principal); S61.213A Laceration without foreign body of left middle finger without damage to nail, initial encounter; W45.8XXA Other foreign body or object entering through skin, initial encounter; W26.8XXA Contact with other sharp object(s), not elsewhere classified, initial encounter; Y93.89 Activity, other specified; Y92.9 Unspecified place or not applicable; Y99.9 Unspecified external cause status
CPT/HCPCS: 12002; 73130; 99283; 99284; J2003

== ENCOUNTER → 2024-10-31 13:32 | Outpatient (BNV) | payer SELFPAY | PROVIDERS: Visit Provider Radiology Diagnostic Radiology | DX: M79.645 Pain in left finger(s) (principal) | CPT/HCPCS: 73130 ==